=== PATIENT | female | born 1960 | race Hispanic/Latino ===

== ENCOUNTER 2017-10-24 19:26 | Emergency (ER) | payer SELFPAY ==
[2017-10-24 21:00] VITALS: BP 152/82; PULSE 74; RESP 16; TEMP 98.4; O2SAT 100
--- NOTE | 2017-10-24 22:31 | ED PDOC ---
HPI: Allergic Reaction Time Seen by Provider: 10/24/17 22:18 Chief Complaint (Nursing): Allergic Reaction Chief Complaint (Provider): Itchiness History Per: Patient History/Exam Limitations: no limitations Onset/Duration Of Symptoms: Hrs Current Symptoms Are (Timing): Intermittent Episodes Possible Cause: Food (Milk) Home/EMS Treatment: Benadryl (1400 and 1900) Additional Complaint(s): 57 yo female with no medical problems presents with itchiness. Pt states she has not had any milk in the last few years and in the last few days she has been using milk in her tea. PT states that she ate a yogurt this afternoon and began having itchiness all over her body and felt like her lips were edematous. Pt states she took Benadryl and it resolved. Pt states she began feeling similar at 1900 and took benadryl again. Pt states she is "concerned about a biphasic allergic reaction" Past Medical History Reviewed: Historical Data, Nursing Documentation, Vital Signs Vital Signs: Last Vital Signs Temp 98.4 F 10/24/17 20:53 Pulse 74 10/24/17 20:53 Resp 16 10/24/17 20:53 BP 152/82 H 10/24/17 20:53 Pulse Ox 100 10/24/17 20:53 - Medical History PMH: Anxiety - Surgical History Surgical History: No Surg Hx - Family History Family History: States: No Known Family Hx - Living Arrangements Living Arrangements: Other - Home Medications Home Medications: Ambulatory Orders Medication Instructions Recorded Famotidine [Pepcid] 20 mg PO DAILY #5 tab 10/24/17 predniSONE [predniSONE Tab] 20 mg PO DAILY #12 tab 10/24/17 - Allergies Allergies/Adverse Reactions: Allergies Allergy/AdvReac Type Severity Reaction Status Date / Time Penicillins Allergy RASH Verified 10/24/17 20:53 Review of Systems ROS Statement: Except As Marked, All Systems Reviewed And Found Negative Constitutional: Negative for: Fever, Chills Skin: Positive for: Other (Itchiness ) Physical Exam - Reviewed Nursing Documentation Reviewed: Yes Vital Signs Reviewed: Yes - Physical Exam Appears: Positive for: Well, Non-toxic, No Acute Distress Head Exam: Positive for: ATRAUMATIC, NORMAL INSPECTION, NORMOCEPHALIC Skin: Positive for: Normal Color, Warm, DRY Eye Exam: Positive for: Normal appearance ENT: Positive for: Normal ENT Inspection, Other (No facial edema ) Neck: Positive for: Normal, Painless ROM Cardiovascular/Chest: Positive for: Regular Rate, Rhythm Respiratory: Positive for: Normal Breath Sounds. Negative for: Accessory Muscle Use, Respiratory Distress Gastrointestinal/Abdominal: Negative for: Tenderness Back: Positive for: Normal Inspection Extremity: Positive for: Normal ROM Neurologic/Psych: Positive for: Alert, Oriented - ECG O2 Sat by Pulse Oximetry: 100 Disposition - Clinical Impression Clinical Impression: Allergic reaction - Patient ED Disposition Is Patient to be Admitted: No Counseled Patient/Family Regarding: Diagnosis, Need For Followup, Rx Given - Disposition Disposition: Routine/Home Disposition Time: 23:39 Condition: GOOD Prescriptions: Famotidine [Pepcid] 20 mg PO DAILY #5 tab predniSONE [predniSONE Tab] 20 mg PO DAILY #12 tab Instructions: Allergy Skin Testing Forms: [employer] (Liberian) Medical Decision Making Medical Decision Making: Pt reports feeling better on re-evaluation after 500cc and solumedrol IV.
[2017-10-24] MEDS: Sodium Chloride 0.9% 500 ML IV SCH ×3 (22:50→23:49)
== END 2017-10-24 23:50 | disposition home or self-care (01) ==
LOC: H.ER 19:26
DX: T78.40XA Allergy, unspecified, initial encounter (principal); Z88.0 Allergy status to penicillin; F41.9 Anxiety disorder, unspecified
CPT/HCPCS: 99282; J2930; J7040

== ENCOUNTER 2018-07-11 03:56 | Emergency (ER) | payer SELFPAY ==
[2018-07-11 04:13] VITALS: RESP 18
--- NOTE | 2018-07-11 05:18 | ED PDOC ---
HPI: Neurologic - General Time Seen by Provider: 07/11/18 04:00 Chief Complaint (Nursing): Weakness/Neurological Deficit Chief Complaint (Provider): Weakness/Neurological Deficit Source: patient Exam Limitations: no limitations - History of Present Illness Allergies/Adverse Reactions: Allergies Penicillins Allergy (Verified 07/11/18 04:06) RASH Home Medications: Ambulatory Orders Famotidine [Pepcid] 20 mg PO DAILY #5 tab 10/24/17 predniSONE [predniSONE Tab] 20 mg PO DAILY #12 tab 10/24/17 Additional Complaint(s): 58 y/o female with no significant past medical history presents to the ED complaining of numbness onset yesterday afternoon. Patient reports that she felt a funny feeling in her chin which was described as an involuntary trembling. Patient went to bed at 23:00 and woke up at 02:00 and she noticed the left side of her face and her left pinky were going numb. Patient also reports that for a brief period of time her left upper extremity felt weak but that resolved spontaneously. On arrival to the ED all the symptoms have resolved except for the pinky numbness which keeps coming and going. Patient denies chest pain, and shortness of breath. Patient does report associated mild throbbing headache. Past Medical History Reviewed: Historical Data, Nursing Documentation, Vital Signs Vital Signs: Last Vital Signs Temp 97.5 F L 07/11/18 04:04 Pulse 101 H 07/11/18 04:04 Resp 18 07/11/18 04:04 BP 148/111 H 07/11/18 04:04 Pulse Ox 98 07/11/18 04:04 - Medical History PMH: Anxiety - Surgical History Surgical History: No Surg Hx - Family History Family History: States: Unknown Family Hx - Home Medications Home Medications: Ambulatory Orders Medication Instructions Recorded Famotidine [Pepcid] 20 mg PO DAILY #5 tab 10/24/17 predniSONE [predniSONE Tab] 20 mg PO DAILY #12 tab 10/24/17 - Allergies Allergies/Adverse Reactions: Allergies Allergy/AdvReac Type Severity Reaction Status Date / Time Penicillins Allergy RASH Verified 07/11/18 04:06 Review of Systems ROS Statement: Except As Marked, All Systems Reviewed And Found Negative Cardiovascular: Negative for: Chest Pain Respiratory: Negative for: Shortness of Breath Neurological: Positive for: Weakness, Numbness, Headache Physical Exam - Reviewed Nursing Documentation Reviewed: Yes Vital Signs Reviewed: Yes - Physical Exam Appears: Positive for: Well, Non-toxic, No Acute Distress Head Exam: Positive for: ATRAUMATIC, NORMOCEPHALIC Skin: Positive for: Normal Color, Warm, DRY Eye Exam: Positive for: EOMI, Normal appearance, PERRL ENT: Positive for: Normal ENT Inspection Neck: Positive for: Normal, Painless ROM Cardiovascular/Chest: Positive for: Regular Rate, Rhythm. Negative for: Murmur Respiratory: Positive for: Normal Breath Sounds. Negative for: Respiratory Distress Gastrointestinal/Abdominal: Positive for: Normal Exam, Soft. Negative for: Te nderness Back: Positive for: Normal Inspection Extremity: Positive for: Normal ROM. Negative for: Pedal Edema, Deformity Neurologic/Psych: Positive for: Alert, primary care nurse practitioner II-XII (intact), Oriented, Mood/Affect (flat), Cerebellar Tests (normal), Gait (steady). Negative for: Motor/Sensory Deficits, Aphasia, Facial Droop - Laboratory Results Result Diagrams: 07/11/18 05:02 07/11/18 05:02 - ECG O2 Sat by Pulse Oximetry: 98 (RA) Pulse Ox Interpretation: Normal Medical Decision Making Medical Decision Making: Time: 04:23 A/P: Well appearing female with nonspecific neurological symptoms. Not concerned for stroke TIA at this time. Most likely peripheral neuropathy vs. parasthesia vs. anxiety * CT Head * EKG * BMP * CBC Time: 05:17 Normal size of the ventricles and extra-axial spaces for the patient's age. Normal white matter tracts of the supratentorial brain. Normal basal ganglia and thalami. Normal brainstem. Normal cerebellum. There is no demonstrated extra-axial, intraparenchymal, or intraventricular hemorrhage. There are no findings of an acute ischemic infarction. Normal calvarium. There is no demonstrated fracture. Normal soft tissue structures. Normal visualized paranasal sinuses. IMPRESSION: Normal unenhanced CT scan of the brain. 545AM --Patient remains well appearing --Advised patient to followup with Dr. Ferrari --Normal vitals upon discharge Scribe Attestation: Documented by Brent Ledesma acting as a scribe for Juarez Sy MD. Provider Scribe Attestation: All medical record entries made by the Scribe were at my direction and personally dictated by me. I have reviewed the chart and agree that the record accurately reflects my personal performance of the history, physical exam, medical decision making, and the department course for this patient. I have also personally directed, reviewed, and agree with the discharge instructions and disposition. Disposition - Clinical Impression Clinical Impression: Paresthesia - Patient ED Disposition Is Patient to be Admitted: No - Disposition Referrals: David Ferrari MD [Family Provider] - Disposition: Routine/Home Disposition Time: 05:43 Condition: GOOD Instructions: Paresthesias (DC) Forms: [employer] (Czech)
[2018-07-11 05:27] LABS: HEMOGLOBIN 12.8 g/dL (12.0-16.0); MEAN CELL VOLUME 94.2 fl (81.0-99.0); MEAN CORPUSCULAR HEMOGLOBIN 31.5 pg (27.0-31.0); MEAN CORPUSCULAR HGB CONC 33.5 g/dL (33.0-37.0); RBC 4.06 Mil/uL (3.80-5.20); RED CELL DISTRIBUTION WIDTH 13.2 % (11.5-14.5); WHITE BLOOD COUNT 4.9 K/uL (4.8-10.8)
[2018-07-11 05:32] LABS: BLOOD UREA NITROGEN 17 mg/dl (7-17); CALCIUM 9.3 mg/dL (8.4-10.2); GFR NON-AFRICAN AMERICAN > 60
[2018-07-11 06:00] VITALS: BP 121/60; PULSE 56; TEMP 97.9; O2SAT 100
--- NOTE | 2018-07-11 08:38 | CT ---
Date of service: 07/11/2018 PROCEDURE: CT HEAD WITHOUT CONTRAST. HISTORY: facial numbness COMPARISON: None available. TECHNIQUE: Axial computed tomography images were obtained through the head/brain without intravenous contrast. Radiation dose: Total exam DLP = 799.27 mGy-cm. This CT exam was performed using one or more of the following dose reduction techniques: Automated exposure control, adjustment of the mA and/or kV according to patient size, and/or use of iterative reconstruction technique. FINDINGS: HEMORRHAGE: No intracranial hemorrhage. BRAIN: No mass effect or edema. No atrophy or chronic microvascular ischemic changes. VENTRICLES: Unremarkable. No hydrocephalus. CALVARIUM: Unremarkable. PARANASAL SINUSES: Mild chronic ethmoid and sphenoid sinusitis. MASTOID AIR CELLS: Unremarkable as visualized. No inflammatory changes. OTHER FINDINGS: None. IMPRESSION: No intracranial mass, hemorrhage or evidence of acute infarct. Mild chronic paranasal sinusitis. The preliminary findings for this examination were reported by [facility] at 5:17 a.m. on 07/11/2018. There is discordance of this report with the preliminary findings. Mild chronic paranasal sinusitis was not described in the preliminary report of this examination.
--- NOTE | 2018-07-11 11:23 | CARD ---
APPROVED REPORT Date of service: 07/11/2018 EKG Measurement Heart [id number] <Conclusion> Normal sinus rhythm with sinus arrhythmia Normal Electrocardiogram
== END 2018-07-11 06:02 | disposition home or self-care (01) ==
LOC: H.ER 03:56
DX: R20.2 Paresthesia of skin (principal); M62.81 Muscle weakness (generalized); J32.9 Chronic sinusitis, unspecified; Z88.0 Allergy status to penicillin; F41.9 Anxiety disorder, unspecified

== ENCOUNTER 2018-09-14 10:37 | Emergency (ER) | payer BC ==
--- NOTE | 2018-09-14 12:00 | ED PDOC ---
HPI: SOB/CHF/COPD Time Seen by Provider: 09/14/18 10:51 Chief Complaint (Nursing): Shortness Of Breath History Per: Patient Additional Complaint(s): Pt. states for the past 2 weeks she's had SOB which is most prominent at upon awakening in the morning and during this she also has numbness to her palms and all her toes b/l. Reports similar symptoms have been occurring for several months. Pt. was dx with anxiety by her PMD, Dr. Walsh and was prescribed Xanax which she uses seldom which does provide transient relief. Pt. also states she's had a cough productive of green sputum that occurred at the onset of SOB. Denies calf pain, hemoptysis, fever, chills, hx of DVT or PE, recent prolonged limb immobilization, SALAMAN[place]. Also reports she was seen in urgent care today and was advised to go to ED. While waiting in urgent care she received a phone call that her boyfriend's father . Past Medical History Reviewed: Historical Data, Nursing Documentation, Vital Signs Vital Signs: Last Vital Signs Temp 97.6 F 09/14/18 11:19 Pulse 81 09/14/18 11:19 Resp 15 09/14/18 11:20 BP 141/90 09/14/18 11:19 Pulse Ox 100 09/14/18 11:19 - Medical History PMH: Anxiety Denies: CAD, HTN, Hypercholesterolemia - Surgical History Surgical History: No Surg Hx - Family History Family History: States: NE (father at 70 y/o had NE) - Home Medications Home Medications: Ambulatory Orders Medication Instructions Recorded Famotidine [Pepcid] 20 mg PO DAILY #5 tab 10/24/17 RX: predniSONE [predniSONE Tab] 20 mg PO DAILY #12 tab 10/24/17 - Allergies Allergies/Adverse Reactions: Allergies Allergy/AdvReac Type Severity Reaction Status Date / Time Penicillins Allergy RASH Verified 07/11/18 04:06 Wells Criteria for PE - Wells Criteria for Pulmonary Embolism Clinical Signs and Symptoms of DVT: No P.E is #1 Diagnosis, or Equally Likely: No Heart Rate >100: No Immobilization at least 3 days;Surgery previous 4 weeks: No Previous, objectively diagnosed PE or DVT: No Hemoptysis: No Malignancy w/treatment within 6 months, or palliative: No Total Score: 0 Review of Systems ROS Statement: Except As Marked, All Systems Reviewed And Found Negative Respiratory: Positive for: Cough, Shortness of Breath Psych: Positive for: Anxiety Physical Exam - Physical Exam Appears: Positive for: Well, Non-toxic, No Acute Distress Skin: Positive for: Normal Color, Warm. Negative for: Rash Eye Exam: Positive for: Normal appearance ENT: Positive for: Normal ENT Inspection Cardiovascular/Chest: Positive for: Regular Rate, Rhythm. Negative for: Tachycardia Respiratory: Positive for: Normal Breath Sounds. Negative for: Wheezing, Respiratory Distress Gastrointestinal/Abdominal: Positive for: Soft. Negative for: Tenderness Back: Positive for: Normal Inspection. Negative for: L CVA Tenderness, R CVA Tenderness Extremity: Negative for: Pedal Edema (b/l), Calf Tenderness (b/l) Neurologic/Psych: Positive for: Alert, Oriented (x3), Mood/Affect (crying and appears very anxious, easily consolable) - Laboratory Results Result Diagrams: 09/14/18 12:10 09/14/18 12:10 - ECG ECG: Positive for: Interpreted By Me ECG Rhythm: Positive for: Sinus Rhythm. Negative for: ST/T Changes Rate: 75 O2 Sat by Pulse Oximetry: 100 - Radiology X-Ray: Read By Radiologist (CXR) X-Ray Interpretation: No Acute Disease - Progress ED Course And Treament: Labs, EKG, CXR ordered. Pt. placed on awake overnight monitor. On re-evaluation, pt. smiling and happy. Reports feeling much better. Informed of all results. Advised to f/u with Dr. Walsh for further evaluation but is to return to ED immediately if symptoms worsen. Denies SI/HI, hallucinations. Pt. verbalized corrected understanding of necessary f/u and care. Disposition - Clinical Impression Clinical Impression: Anxiety - Patient ED Disposition Is Patient to be Admitted: No - Disposition Referrals: Deneen Galdamez [Outside] Disposition: Routine/Home Disposition Time: 13:31 Condition: IMPROVED Additional Instructions: FOLLOW UP WITH YOUR PMD FOR FURTHER EVALUATION RETURN TO ED IMMEDIATELY IF SYMPTOMS WORSEN URBAN MARTINEZ, thank you for letting us take care of you today. Your provider was Kristen Montilla MD and you were treated for SOB,DIZZINESS. The emergency medical care you received today was directed at your acute symptoms. If you were prescribed any medication, please fill it and take as directed. It may take several days for your symptoms to resolve. Return to the Emergency Department if your symptoms worsen, do not improve, or if you have any other problems. Please contact your doctor or call one of the physicians/clinics you have been referred to that are listed on the Patient Visit Information form that is included in your discharge packet. Bring any paperwork you were given at discharge with you along with any medications you are taking to your follow up visit. Our treatment cannot replace ongoing medical care by a primary care provider outside of the emergency department. Thank you for allowing the [facility] team to be part of your care today. If you had an X-Ray or CT scan: A Radiologist will review the ED reading if any change in treatment is needed we will contact you. If you had a blood, urine, or wound culture: It will take several days for the results, if any change in treatment is needed we will contact you. If you had an STI test: It will take 48 hours for the results. Please call after 1 week if you have not heard back. Instructions: Chest Pain That Is Not Caused by the Heart (DC), Anxiety, Adult (DC) Forms: [employer] (Nepali)
[2018-09-14 12:22] LABS: BASO % 0.8 % (0.0-2.0); EOS # 0.1 K/uL (0.0-0.7); EOS % 3.2 % (0.0-4.0); HEMOGLOBIN 12.9 g/dL (12.0-16.0); LYMPH # 1.3 K/uL (1.0-4.3); MEAN CELL VOLUME 93.8 fl (81.0-99.0); MEAN CORPUSCULAR HEMOGLOBIN 31.9 pg (27.0-31.0); MEAN PLATELET VOLUME 8.7 fl (7.2-11.7); MONO # 0.3 K/uL (0.0-0.8); MONO % 7.3 % (0.0-10.0); NEUT # 2.5 K/uL (1.8-7.0); NEUT % 58.7 % (50.0-75.0); RBC 4.05 Mil/uL (3.80-5.20); RED CELL DISTRIBUTION WIDTH 12.9 % (11.5-14.5); WHITE BLOOD COUNT 4.3 K/uL (4.8-10.8)
[2018-09-14 12:31] LABS: ALB/GLOB RATIO 1.2 (1.0-2.1); ALBUMIN 3.9 g/dL (3.5-5.0); ALT/SGPT 24 U/L (9-52); AST/SGOT 27 U/L (14-36); BLOOD UREA NITROGEN 14 mg/dl (7-17); CALCIUM 9.5 mg/dL (8.4-10.2); GFR NON-AFRICAN AMERICAN > 60
--- NOTE | 2018-09-14 12:41 | RAD ---
Date of service: 09/14/2018 HISTORY: SOB COMPARISON: No prior. FINDINGS: LUNGS: No active pulmonary disease. PLEURA: No significant pleural effusion identified, no pneumothorax apparent. CARDIOVASCULAR: No aortic atherosclerotic calcification present. Normal cardiac size. No pulmonary vascular congestion. OSSEOUS STRUCTURES: No significant abnormalities. VISUALIZED UPPER ABDOMEN: Normal. OTHER FINDINGS: None. IMPRESSION: No acute cardiopulmonary disease appreciated.
[2018-09-14 13:48] VITALS: BP 113/67; RESP 19; TEMP 97.9
[2018-09-14 13:52] VITALS: PULSE 75; O2SAT 100
--- NOTE | 2018-09-14 21:06 | CARD ---
APPROVED REPORT Date of service: 09/14/2018 EKG Measurement Heart [id number] <Conclusion> Normal sinus rhythm Normal Electrocardiogram
== END 2018-09-14 13:50 | disposition home or self-care (01) ==
LOC: H.ER 10:37
DX: F41.9 Anxiety disorder, unspecified (principal)